=== PATIENT | male | born 1980 | race Caucasian/White ===

== ENCOUNTER → 2017-07-15 | Outpatient (CLI) | payer BC ==
[2015-07-09 15:14] VITALS: BP 132/89
--- NOTE | 2017-07-15 11:41 | MRI ---
MRI cervical spine without contrast Indication: Neck pain Technique: Multisequence, multiplanar MR images of the cervical spine were obtained without IV contra st. Comparison: None Findings: Body vertebral body heights, alignment and marrow signal are normal. No acute fracture, sub luxation or suspicious osseous lesion is identified. The cervical medullary junction is normal. The a tlantoaxial joint and atlantodental interval are within normal limits. The imaged prevertebral and pa raspinal soft tissues demonstrate no gross unexpected findings. C2-C3: Unremarkable C3-C4: Unremarkable C4-C5: Unremarkable C5-C6: Very mild facet arthropathy and minimal uncovertebral hypertrophy without significant canal or foraminal stenosis. C6-C7: Very mild facet arthropathy and uncovertebral hypertrophy without significant canal or foramin al stenosis. C7-T1: Very mild facet arthropathy. Otherwise, unremarkable. Impression: Very mild facet arthropathy and uncovertebral hypertrophy of the mid and lower cervical spine without high-grade canal or foraminal compromise identified at any level. Reported By:
--- NOTE | 2017-07-15 11:44 | MRI ---
MRI right shoulder without contrast Indication: Right shoulder pain Comparison: None Technique: Multiplanar multi sequence MR images of the right shoulder were obtained without contrast. Findings: The marrow signal and bony alignment within normal limits, without evidence for acute fract ure or dislocation. There are mild degenerative changes of the AC joint. Mild supraspinatus and infra spinatus tendinosis is noted, with undersurface fraying of the distal supraspinatus. There is no evid ence for large cuff tear or tendon retraction. Minimal cystic change of the posterior superior radha l head underlying the infraspinatus footplate is in keeping with chronic tendinopathy. The subscapula ris, teres minor, and intra-articular biceps tendon are grossly intact. There is no overt labral tear . No high-grade glenohumeral chondrosis identified. There is no joint effusion. No muscle atrophy abo ut the shoulder. Impression: Mild supraspinatus and infraspinatus tendinosis, AC joint DJD. Reported By:
== END | disposition home or self-care (01) | DRG 556 ==
LOC: RAD 09:38
PROVIDERS: ATTEND Internal Medicine
DX: M25.511 Pain in right shoulder (principal); M54.2 Cervicalgia; M67.813 Other specified disorders of tendon, right shoulder; M19.011 Primary osteoarthritis, right shoulder; M47.892 Other spondylosis, cervical region; M47.893 Other spondylosis, cervicothoracic region
CPT/HCPCS: 72141; 73221